=== PATIENT | female | born 1950 | race Caucasian/White ===

== ENCOUNTER 2021-02-28 12:32 | Emergency (ER) | payer MEDICARE ==
[2021-02-28 14:05] LABS: HEMOGLOBIN 11.1 gm/dl (12.3-15.3); RED BLOOD COUNT 3.51 M/UL (4.00-5.10)
[2021-02-28] MEDS ORDERED: ELIQUIS5 M1 PO (15:03)
== END 2021-02-28 15:25 | disposition home or self-care (01) ==
LOC: ER1 12:32
PROVIDERS: Student in an Organized Health Care Education/Training Program
DX: I82.412 Acute embolism and thrombosis of left femoral vein (principal); E11.9 Type 2 diabetes mellitus without complications; I10 Essential (primary) hypertension; Z86.73 Personal history of transient ischemic attack (TIA), and cerebral infarction without residual deficits
CPT/HCPCS: 80053; 85025; 85610; 93925; 93970; 99283

== ENCOUNTER → 2021-02-28 | Outpatient (CLI) | payer MEDICARE ==
[~2021-02-28] MED LIST: ELIQUIS5 M1 PO
== END ==
LOC: EXRD 09:45 → HEART 5 11:00
DX: E11.51 Type 2 diabetes mellitus with diabetic peripheral angiopathy without gangrene (principal); I73.89 Other specified peripheral vascular diseases; I82.412 Acute embolism and thrombosis of left femoral vein
CPT/HCPCS: 93925; 93970